=== PATIENT | female | born 1970 | race Hispanic/Latino ===

== ENCOUNTER 2019-07-09 10:18 | Outpatient (CLI) | payer BC ==
--- NOTE | 2019-07-09 12:35 | Mammography Report ---
DIGITAL DIAGNOSTIC MAMMOGRAM WITH CAD, 07/09/2019 INDICATION: Recent bilateral mammogram with nik done at [facility]. Bilateral stereotactic biops y was recommended. However, no magnification views of calcifications were done on that exam. She is n ow being imaged with magnification views to determine the necessity of biopsy. TECHNIQUE: Digital bilateral mammographic imaging was performed. Magnification views were obtained. This examination was interpreted with the benefit of Computer-aided Detection analysis. COMPARISON: 06/26/2019 bilateral mammogram from [facility] FINDINGS: Breast Density: The breasts are heterogeneously dense, which may obscure small masses. A group of pleomorphic calcifications in the right breast at 9:00 approximately 11-14 cm from the nip ple is the largest group and the most suspicious group of calcifications in the right breast. No defi nite mass associated with the calcifications. Additional pleomorphic calcifications in a ductal distr ibution extending anteriorly from this group for approximately 6.5 cm. A third group of right breast calcifications is located at 8:00 far posterior. This group is smaller with fewer calcifications and may not be accessible for stereotactic biopsy because they are so far posterior. A single group of left amorphous calcifications at 9:00 approximately 10 cm from the nipple. No other calcifications are identified in the left breast. No mass or architectural distortion of the left br east. IMPRESSION: 3 suspicious groups of calcifications in the right breast and on suspicious group of calc ifications in the left breast. Recommend bilateral stereotactic biopsy with biopsy of 2 sites in the right breast and one side in the left breast. I discussed the findings and the recommendation for bilateral stereotactic biopsy with the patient at the time of the exam. Follow up recommendation: Biopsy BI-RADS Category 4: Suspicious for Malignancy. A "normal" or negative report should not discourage follow up or biopsy of a clinically significant f inding. A written summary of these findings will be mailed to the patient. The patient will be entered into a mammography reporting system which will generate a reminder letter for the patient's next appointmen t at the appropriate interval. According to the [employer], yearly mammograms are recommended starting at age 40 and continuing as long as a woman is in good health. Breast MRI is recommended for women with an sandor roximately 20-25% or greater lifetime risk of breast cancer, including women with a strong family his tory of breast or ovarian cancer and women who have been treated for Hodgkin's disease. Signer Name: Xavier Jernigan MD Signed: 07/09/2019 12:30 PM Workstation Name: [id number]
== END 2019-07-09 10:19 | disposition home or self-care (01) ==
LOC: SPVWC 10:18
PROVIDERS: ATTEND Surgery
DX: R92.8 Other abnormal and inconclusive findings on diagnostic imaging of breast (principal); N64.89 Other specified disorders of breast
CPT/HCPCS: 77066

== ENCOUNTER 2019-07-16 08:50 | Outpatient (CLI) | payer BC ==
--- NOTE | 2019-07-16 15:51 | Mammography Report ---
STEREOTACTIC NEEDLE BIOPSY WITH CLIP PLACEMENT 2 SITES RIGHT BREAST INDICATION: RIGHT BREAST CALCIFICATIONS. COMPARISON: No relevant prior imaging study available. FINDINGS: The patient was placed prone on the stereotactic biopsy table. A timeout was called and the skin was cleansed with betadine. Attention was first given to the most suspicious group of calcifications located most superior. Using stereotactic guidance, sterile technique and 1% lidocaine for skin anesthesia and 2% lidocaine with epinephrine for deep anesthesia, 8-gauge Mammotome vacuum-assisted biopsy was performed from a CC fro m below approach. Samples were obtained around the clock face and financial foundations representative calcifications were identified on a specimen radiograph. A localizer clip was placed at the biopsy site and the probe was removed. Hemostasis was achieved with pressure to the site. Attention was then given to a more anterior group of calcifications closer to the nipple. Using stere otactic guidance, sterile technique and 1% lidocaine for skin anesthesia and 2% lidocaine with epinep hrine for deep anesthesia, 8-gauge Mammotome vacuum-assisted biopsy was performed from a CC from belo w approach. Samples were obtained around the clock face and financial foundations representative calcifications were identi fied on a specimen radiograph. A localizer clip was placed at the biopsy site and the probe was remov ed. Hemostasis was achieved with pressure to the site. A post procedure mammogram demonstrated removal of at least some of the calcifications at both sites and concordant location of the biopsy clips. The patient tolerated the procedure well and there were no apparent complications. She left the department in good condition with a cold pack applied to the biopsy sites and she was given instructions for wound care and follow-up. IMPRESSION: 1. Uncomplicated successful stereotactic biopsy with clip placement at 2 sites right breast.. Signer Name: Xavier Jernigan MD Signed: 07/16/2019 3:46 PM Workstation Name: [id number]
--- NOTE | 2019-07-16 15:51 | Mammography Report ---
STEREOTACTIC NEEDLE BIOPSY WITH CLIP PLACEMENT 2 SITES RIGHT BREAST INDICATION: RIGHT BREAST CALCIFICATIONS. COMPARISON: No relevant prior imaging study available. FINDINGS: The patient was placed prone on the stereotactic biopsy table. A timeout was called and the skin was cleansed with betadine. Attention was first given to the most suspicious group of calcifications located most superior. Using stereotactic guidance, sterile technique and 1% lidocaine for skin anesthesia and 2% lidocaine with epinephrine for deep anesthesia, 8-gauge Mammotome vacuum-assisted biopsy was performed from a CC fro m below approach. Samples were obtained around the clock face and paper sales representative calcifications were identified on a specimen radiograph. A localizer clip was placed at the biopsy site and the probe was removed. Hemostasis was achieved with pressure to the site. Attention was then given to a more anterior group of calcifications closer to the nipple. Using stere otactic guidance, sterile technique and 1% lidocaine for skin anesthesia and 2% lidocaine with epinep hrine for deep anesthesia, 8-gauge Mammotome vacuum-assisted biopsy was performed from a CC from belo w approach. Samples were obtained around the clock face and paper sales representative calcifications were identi fied on a specimen radiograph. A localizer clip was placed at the biopsy site and the probe was remov ed. Hemostasis was achieved with pressure to the site. A post procedure mammogram demonstrated removal of at least some of the calcifications at both sites and concordant location of the biopsy clips. The patient tolerated the procedure well and there were no apparent complications. She left the department in good condition with a cold pack applied to the biopsy sites and she was given instructions for wound care and follow-up. IMPRESSION: 1. Uncomplicated successful stereotactic biopsy with clip placement at 2 sites right breast.. Signer Name: Xavier Jernigan MD Signed: 07/16/2019 3:46 PM Workstation Name: [id number]
--- NOTE | 2019-07-16 16:05 | Mammography Report ---
DIGITAL DIAGNOSTIC MAMMOGRAM WITHOUT CAD, 07/16/2019 INDICATION: Immediately status post stereotactic biopsy for calcifications at 2 sites right breast. TECHNIQUE: Digital right mammographic imaging was performed. COMPARISON: 07/09/2019 FINDINGS: Breast Density: The breast is heterogeneously dense, which may obscure small masses. 2 biopsy clips are identified 5 cm apart in the outer breast. Many of the calcifications have been re moved and clip positions are concordant. IMPRESSION: Successful stereotactic biopsy at 2 sites with concordant clip placement. Follow up recommendation: No recall. Post biopsy imaging. A "normal" or negative report should not discourage follow up or biopsy of a clinically significant f inding. A written summary of these findings will be mailed to the patient. The patient will be entered into a mammography reporting system which will generate a reminder letter for the patient's next appointmen t at the appropriate interval. According to the [employer], yearly mammograms are recommended starting at age 40 and continuing as long as a woman is in good health. Breast MRI is recommended for women with an sandor roximately 20-25% or greater lifetime risk of breast cancer, including women with a strong family his tory of breast or ovarian cancer and women who have been treated for Hodgkin's disease. Signer Name: Xavier Jernigan MD Signed: 07/16/2019 4:00 PM Workstation Name: [id number]
== END 2019-07-16 08:51 | disposition home or self-care (01) ==
LOC: SPVWC 08:50
PROVIDERS: ATTEND Surgery
DX: R92.1 Mammographic calcification found on diagnostic imaging of breast (principal); D05.11 Intraductal carcinoma in situ of right breast
CPT/HCPCS: 19081; 19082; 77065; 88305; 88341; 88342; A4648

== ENCOUNTER 2019-07-19 13:32 | Outpatient (CLI) | payer BC ==
--- NOTE | 2019-07-19 16:12 | Mammography Report ---
DIGITAL DIAGNOSTIC MAMMOGRAM WITH CAD, 07/19/2019 INDICATION: POST STEREO BX TECHNIQUE: Digital left mammographic imaging was performed. This examination was interpreted with the benefit of Computer-aided Detection analysis. COMPARISON: 07/09/2019 FINDINGS: Breast Density: The breast is heterogeneously dense, which may obscure small masses. 2 biopsy clips are now identified. The lateral and slightly more anterior clip is concordant with the biopsy site. The more medial clip was initially placed but is displaced approximately 4 cm too media l. IMPRESSION: Successful stereotactic biopsy and concordant clip placement. Follow up recommendation: No recall. Post biopsy imaging. A "normal" or negative report should not discourage follow up or biopsy of a clinically significant f inding. A written summary of these findings will be mailed to the patient. The patient will be entered into a mammography reporting system which will generate a reminder letter for the patient's next appointmen t at the appropriate interval. According to the [employer], yearly mammograms are recommended starting at age 40 and continuing as long as a woman is in good health. Breast MRI is recommended for women with an sandor roximately 20-25% or greater lifetime risk of breast cancer, including women with a strong family his tory of breast or ovarian cancer and women who have been treated for Hodgkin's disease. Signer Name: Xavier Jernigan MD Signed: 07/19/2019 4:07 PM Workstation Name: [id number]
--- NOTE | 2019-07-19 16:15 | Mammography Report ---
STEREOTACTIC NEEDLE BIOPSY WITH CLIP PLACEMENT LEFT BREAST INDICATION: LEFT BREAST CALCIFICATIONS. COMPARISON: 07/09/2019 mammogram FINDINGS: The patient was placed prone on the stereotactic biopsy table. A timeout was called and the skin was cleansed with betadine. Using stereotactic guidance, sterile technique and 1% lidocaine for skin anesthesia and 2% lidocaine with epinephrine for deep anesthesia, 8-gauge Mammotome vacuum-assisted biopsy was performed from a l ateral approach. Samples were obtained around the clock face and motor vehicle representative calcifications were i dentified on a specimen radiograph. A localizer clip was placed at the biopsy site but was not identi fied on a stereo pair. A second clip was then deployed and placement was confirmed with an image. Hem ostasis was achieved with pressure to the site. A sterile dressing was applied. A post procedure mammogram demonstrated removal of at least some of the calcifications and concordant location of one of 2 biopsy clips. The more lateral clip is concordant with the biopsy site. The pat ient tolerated the procedure well and there were no apparent complications. She left the department i n good condition with a cold pack applied to the biopsy site and she was given instructions for wound care and follow-up. IMPRESSION: 1. Successful uncomplicated stereotactic biopsy of the left breast with concordant clip placement.. Signer Name: Xavier Jernigan MD Signed: 07/19/2019 4:11 PM Workstation Name: [id number]
== END 2019-07-19 13:33 | disposition home or self-care (01) ==
LOC: SPVWC 13:32
PROVIDERS: ATTEND Surgery
DX: R92.1 Mammographic calcification found on diagnostic imaging of breast (principal)
CPT/HCPCS: 19081; 77065; 88305; A4648

== ENCOUNTER 2019-08-22 11:08 | Outpatient (CLI) | payer BC ==
--- NOTE | 2019-08-22 16:02 | Magnetic Resonance Report ---
BILATERAL BREAST MR WITHOUT AND WITH GADOLINIUM INDICATION: Newly diagnosed right breast cancer at 2 sites. Stereotactic biopsy of calcifications on 07/16/2019 revealed DCIS at 2 sites in the right breast. She had a benign stereotactic biopsy of calc ifications of the left breast on 07/19/2019. COMPARISONS: 07/09/2019, 07/16/2019 07/19/2019 mammograms TECHNIQUE: Axial 1.0 mm T1 without, axial high-resolution 2.0 mm T2 and axial 1.0 mm dynamic vibrant high-resolution postcontrast T1 fat saturation sequences on a 1.5 Trina magnet. The examination was p erformed with an 8-channel dedicated [place]in[place] breast coil. Post-processing with CAD and subtraction was performed on an [employer] workstation. 19 cc of MultiHance was injected without incident for the con trast portion of the exam. Consent was obtained prior to the administration of the contrast. FINDINGS: RIGHT BREAST: Mild background parenchymal enhancement. Cancer #1 is an irregular non mass enhancement in the outer breast 13 cm from the nipple measuring 29.3 x 19.7 x 12.5 mm. It contains a biopsy clip and demonstrates heterogeneous enhancement with mixed kinetics, 83% peak enhancement and 94% type I persistent waveform. Cancer #2 irregular non mass enhancement in the outer breast 9.7 cm from the nip ple measuring 21.7 x 10.8 x 4.4 mm. It contains a biopsy clip and demonstrates heterogeneous enhancem ent with mixed kinetics, 170% peak enhancement and 4% type III washout. Lesion 3 is irregular non mas s enhancement in the upper outer breast 9.3 cm from the nipple measuring 24.2 x 6.5 x 4.2 mm. It demo nstrates heterogeneous enhancement with mixed kinetics, 91% peak enhancement and 5% type III washout. This lesion is located approximately 5 cm from cancer 1 and 3 cm from cancer 2. 2 additional subcent imeter suspicious lesions are identified in the lower outer quadrant approximately 9 cm from the nipp le. A single suspicious level 1 axillary lymph node measures 2.2 cm and has a cortical thickness of 6 mm. LEFT BREAST: Mild background parenchymal enhancement. No mass or suspicious enhancement. No suspiciou s lymph nodes. IMPRESSION: 1. Multicentric right breast cancer with 2 known cancers and at least 3 additional suspicious lesions . Lesion 3 is clearly above the nipple and the 2 smallest lesions are clearly below the nipple. There are no calcifications on the mammogram to correlate with any of these new lesions identified by MRI. 2. A suspicious right level 1 axillary lymph node with 6 mm thick cortex. 3. Negative left breast. FINAL ASSESSMENT: A normal MRI does not exclude the presence of some forms of breast malignancy as literature reports s uggest that some forms of ductal carcinoma in situ or lobular carcinoma, particularly, may not be det ected on MRI. The sensitivity and specificity of MRI for cancers under 5 mm may be reduced. MRI does not replace the recommendation for annual conventional mammographic evaluation and should be used as an adjunct to mammography and physical examination as necessary. Signer Name: Xavier Jernigan MD Signed: 08/22/2019 3:58 PM Workstation Name: [id number]
== END 2019-08-22 11:09 | disposition home or self-care (01) ==
LOC: SPVIMAG 11:08
PROVIDERS: ATTEND Surgery
DX: C50.111 Malignant neoplasm of central portion of right female breast (principal); N64.89 Other specified disorders of breast
CPT/HCPCS: A9577; C8908; 77049

== ENCOUNTER 2019-10-03 12:55 | Outpatient (CLI) | payer BC ==
--- NOTE | 2019-10-03 14:49 | Ultrasound Report ---
ULTRASOUND-GUIDED NEEDLE CORE BIOPSY RIGHT AXILLARY LYMPH NODE WITH CLIP PLACEMENT CLINICAL: Right breast cancer and an abnormal right axillary lymph node on MRI. FINDINGS: The procedure was explained to the patient and informed consent was obtained. Ultrasound demonstrated the previously identified lymph node measuring approximately 1.3 cm in short axis. I marked the breast with a felt tip marker and a timeout was called. The skin was prepped with Chloro -Prep and anesthetized with 1% lidocaine. Needle core biopsy was performed through small dermatotomy using ultrasound guidance, 2% lidocaine wi th epinephrine for deep anesthesia and a 18-gauge Achieve biopsy device. 3 cores were obtained and pl aced in formalin. A clip was deployed within the lymph node. The patient tolerated the procedure well and there were no apparent complications. Hemostasis was ach ieved with minimal effort and a sterile dressing was applied. IMPRESSION: Uncomplicated ultrasound guided needle core biopsy with clip placement right axillary lym ph node. Signer Name: Xavier Jernigan MD Signed: 10/03/2019 2:45 PM Workstation Name: [id number]
== END 2019-10-03 12:56 | disposition home or self-care (01) ==
LOC: SPVWC 12:55
PROVIDERS: ATTEND Surgery
DX: I89.8 Other specified noninfective disorders of lymphatic vessels and lymph nodes (principal); C50.911 Malignant neoplasm of unspecified site of right female breast
CPT/HCPCS: 38505; 76942; 88305; 88342

== ENCOUNTER 2019-11-16 10:32 | Observation (INO) | payer BC ==
[2019-11-14 10:20] LABS: Basophils % (Auto) 0.4 % (0.0-1.8); Eosinophils # (Auto) 0.1 K/mm3 (0.0-0.4); Eosinophils % (Auto) 1.1 % (0.0-4.3); Hematocrit 38.4 % (30.3-42.9); Hemoglobin 13.4 gm/dl (10.1-14.3); Lymphocytes # (Auto) 1.9 K/mm3 (1.2-5.4); Lymphocytes % (Auto) 22.7 % (13.4-35.0); Mean Corpuscular HGB Conc 35 % (30-34); Mean Corpuscular Volume 86 fl (79-97); Monocytes # (Auto) 0.7 K/mm3 (0.0-0.8); Monocytes % (Auto) 8.5 % (0.0-7.3); Platelet Count 259 K/mm3 (140-440); Red Blood Count 4.46 M/mm3 (3.65-5.03)
--- NOTE | 2019-11-14 10:36 | Anesthesia Consultation ---
Anesthesia Consult and Med Hx Date of service: 11/16/19 - Airway Anesthetic Teeth Evaluation: Good ROM Head & Neck: Adequate Mental/Hyoid Distance: Adequate Mallampati Class: Class I Intubation Access Assessment: Probably Good - Pulmonary Exam CTA: Yes - Cardiac Exam Cardiac Exam: RRR - Pre-Operative Health Status ASA Pre-Surgery Classification: ASA3 Proposed Anesthetic Plan: General Nerve Block: PEC - Pulmonary Hx Smoking: Yes (quit 20yrs ago) Hx Respiratory Symptoms: No - Cardiovascular System Hx Hypertension: No Hx Heart Attack/AMI: No Hx Percutaneous Transluminal Coronary Angioplasty (PTCA): No Hx Cardia Arrhythmia: No - Central Nervous System CVA: No - Gastrointestinal Hx Gastroesophageal Reflux Disease: No - Endocrine Hx Renal Disease: No Hx Liver Disease: No Hx Insulin Dependent Diabetes: No Hx Non-Insulin Dependent Diabetes: No Hx Thyroid Disease: No - Other Systems Hx Alcohol Use: Yes (Occas) Hx Cancer: Yes (breast ca) Hx Obesity: Yes (BMI 38) - Additional Comments Anesthesia Medical History Comments: Hx RA with prn prednisone 5mg (uses less than 1x/day). No prior GA. No FHx anesthetic complications.
[2019-11-14 10:42] LABS: Alanine Aminotransferase 22 units/L (7-56); Albumin 3.8 g/dL (3.9-5); BUN/Creatinine Ratio 20; Blood Urea Nitrogen 12 mg/dL (7-17); Calcium 9.4 mg/dL (8.4-10.2); Hemolysis Index 2
[~2019-11-16 10:32] MED LIST: CELECOXIB 200 MG CAP PO NR; GABAPENTIN 300 MG CAP PO NR; LACTATED RINGERS 1,000 ML IV SCH; MAGNESIUM OXIDE 400 MG TAB PO SCH; MIDAZOLAM 2 MG/2 ML INJ IV NR; SCOPOLAMINE TRANSDERMAL PATCH 72 HR TD NR; ceFAZolin/Water 2 GM/20 ML 2 GM/20 ML SYRINGE IV NR; fentaNYL 100 MCG/2 ML INJ IV PRN
[2019-11-16] MEDS ORDERED: dexAMETHasone 4 MG/ML VIAL ONE (11:36)
[2019-11-16] MEDS ORDERED: BUPIVACAINE-EPINEPHRINE/PF 0.5%-1:200,000 (30 ML) VIAL INFILTRATI ONE (11:36)
[2019-11-16] MEDS ORDERED: SODIUM CHLORIDE P/F VIAL 10 ML 30 ML ONE (11:36)
[2019-11-16] MEDS ORDERED: HYDROmorphone 1 MG/1 ML INJ IV PRN (11:55)
--- NOTE | 2019-11-16 11:55 | Anesthesia Day of Surgery ---
Anesthesia Day of Surgery - Day of Surgery Patient Examined: Yes Patient H&P Reviewed: Yes Patient is NPO: Yes
[2019-11-16] MEDS ORDERED: LIDOCAINE MPF (2%) 20 MG/1 ML VIAL 5 ML ONE (12:33)
[2019-11-16] MEDS ORDERED: HYDROmorphone 1 MG/1 ML INJ ONE (12:33)
[2019-11-16] MEDS ORDERED: ROCURONIUM 50 MG/5 ML INJ IV ONE (12:33)
[2019-11-16] MEDS ORDERED: propofoL 200 MG/20 ML VIAL IV ONE (12:34)
[2019-11-16] MEDS ORDERED: dexAMETHasone 20 MG/5 ML VIAL ONE (12:50)
[2019-11-16] MEDS ORDERED: PHENYLEPHRINE/NS 1,000 MCG/10 ML SYRINGE (OR USE) IV ONE (13:26)
[2019-11-16] MEDS ORDERED: ceFAZolin 1 GM VIAL ONE (13:53)
[2019-11-16] MEDS ORDERED: GENTAMICIN 40 MG/ML VIAL 2 ML ONE (13:53)
[2019-11-16] MEDS ORDERED: SODIUM CHLORIDE 0.9% 1000 ML 1,000 ML ONE ×2 (13:53→15:05)
[2019-11-16] MEDS ORDERED: BACITRACIN 50,000 UNIT VIAL ONE (13:53)
[2019-11-16] MEDS ORDERED: METHYLENE BLUE 50 MG/10 ML AMP ONE ×2 (15:05)
[2019-11-16] MEDS ORDERED: LACTATED RINGERS 2,000 ML ONE (16:14)
--- NOTE | 2019-11-16 17:29 | Operative Report ---
Operative Report Operative Report: Operative Report: Date of Service: November 16, 2019 Preoperative diagnosis: Multicentric right breast cancer of the upper outer quadrant Postoperative diagnosis: Same Procedure: Right total mastectomy with sentinel lymph node biopsy and left total mastectomy Surgeon: Ruma Mejia M.D. Mental Health Advanced Practice Nurse: Irma Serrano D.O. Anesthesia: Gen. Findings: Right breast clips (x2) present within right total mastectomy; x1 sentinel lymph node identified and negative for malignancy on frozen section of pathology with biopsy site changes Complications: None Drains: per Plastic Surgery Estimated blood loss: 150 cc Disposition: Plastic surgery proceeded with bilateral tissue manager food placement Indications for operative procedure: This is a 49-year-old lady with newly diagnosed stage 0 multicentric right breast cancer of the upper outer quadrant, ER positive. Patient wished to proceed with a bilateral mastectomy followed by immediate tissue manager food placement. She will be evaluated postoperative for adjuvant radiation therapy if indicated given Stage 0 breast cancer, chemother apy most likely not indicated given Stage 0 breast cancer unless invasive cancer found on final pathology and will then obtain Oncotype DX/Mammoprint. Patient with prior right axillary lymph node needle core biopsy performed and negative for malignancy. Left breast with benign findings. She wished to proceed with the above procedure. Procedure in detail: Bilateral pectoral block was placed by anesthesia. The patient was taken to the operating room and was placed supine. Gen. anesthesia was administered. The right nipple was injected with radioisotope. Bilateral chest and axillas were prepped and draped in the normal sterile operative fashion. Timeout was performed. Typical mastectomy incision markings were made. Attention was taken toward the left breast first. First began raising of the superior flap to the level of the clavicle superiorly and posteriorly to the pectoralis muscle. Followed by raising of the medial flap to the level of the sternum and posteriorly to the pectoralis muscle. Followed by raising of the lateral flap to the level of the latissimus dorsi muscle and taken down posteriorly. Followed by raising of the inferior flap to the level of the inframammary fold taken posterior to the pectoralis muscle. The mastectomy/breast was removed from the pectoralis muscle without incident. The specimen was appropriately marked and sent to pathology. Hemostasis was obtained using bovie cautery. The chest wall cavity was irrigated. Attention was taken towards the right breast. A gamma probe was inserted into the axilla to identify the sentinel lymph node location with uptake noted. A skin incision was made with a 10 blade knife and dissection taken down to the subcutaneous tissues. First began raising of the superior flap to the level of the clavicle superiorly and posteriorly to the pectoralis muscle. Followed by raising of the medial flap to the level of the sternum and posteriorly to the pectoralis muscle. Followed by raising of the lateral flap to the level of the latissimus dorsi muscle and taken down posteriorly. The gamma probe was inserted into the axilla, the axillary fascia was opened and 1 SLN was identified that were dissected free and sent to pathology. SLN sent to pathology with findings negative for malignancy on frozen section and biopsy site changes present. No additional counts noted in the axilla. Then proceeded with raising of the inferior flap to the level of the inframammary fold taken posterior to the pectoralis muscle. The mastectomy/breast was removed from the pectoralis muscle without incident. The specimen was appropriately marked and sent to radiology with findings of x2 breast clips present and sent to pathology. Additional tissue was then taken from the upper outer quadrant mastectomy skin flap-dense tissue noted with raising of the flap and sent to pathology. Hemostasis was obtained. The chest wall cavity was irrigated. She tolerated surgery very well and Dr. English then proceeded with bilateral tissue manager food placement.
[2019-11-16] MEDS ORDERED: WATER FOR IRRIG STERILE 1,500 ML BOTTLE IR ONE (17:30)
[2019-11-16] MEDS ORDERED: BACITRACIN 50,000 UNIT VIAL IR ONE (17:30)
[2019-11-16] MEDS ORDERED: GENTAMICIN 40 MG/ML VIAL 2 ML IV ONE (17:30)
[2019-11-16] MEDS ORDERED: SODIUM CHLORIDE 0.9% IRR 1,500 ML BOTTLE IR ONE (17:30)
[2019-11-16] MEDS ORDERED: ceFAZolin 1 GM VIAL IV ONE (17:30)
[2019-11-16] MEDS ORDERED: diphenhydrAMINE 25 MG CAP PO PRN (17:31)
[2019-11-16] MEDS ORDERED: oxyCODONE /ACETAMINOPHEN 5-325MG TAB PO PRN (17:31)
[2019-11-16] MEDS ORDERED: ACETAMINOPHEN 325 MG TAB PO PRN (17:31)
[2019-11-16] MEDS ORDERED: HYDROmorphone 2 MG TAB PO PRN (17:31)
[2019-11-16] MEDS ORDERED: METOCLOPRAMIDE 10 MG TAB PO PRN (17:31)
[2019-11-16] MEDS ORDERED: ONDANSETRON 4 MG/2 ML INJ IV PRN (17:31)
[2019-11-16] MEDS ORDERED: ONDANSETRON 4 MG/2 ML INJ ONE (17:31)
--- NOTE | 2019-11-16 17:31 | Short Stay Summary ---
Short Stay Documentation Date of service: 11/16/19 - History H&P: obtained from office - Allergies and Medications Current Medications: Allergies No Known Allergies Allergy (Unverified 11/13/19 12:13) Home Medications Medication Instructions Recorded Confirmed Last Taken Type Ergocalciferol(Vitamin D2)(Nf) 400 unit PO DAILY 11/13/19 11/16/19 11/15/19 12:00 History [Vitamin D (Nf)] Multivitamin [Daily Multiple 1 each PO DAILY 11/13/19 11/16/19 11/15/19 12:00 History Vitamin] RX: Ibuprofen [Motrin 800 MG tab] 800 mg PO Q8H PRN 11/13/19 11/16/19 11/15/19 12:00 History RX: predniSONE [Deltasone] 5 mg PO DAILY PRN 11/13/19 11/16/19 11/15/19 09:00 History Active Medications Celecoxib (Celebrex) 200 mg PO PREOP NR Stop: 11/16/19 23:00 Last Admin: 11/16/19 10:50 Dose: 200 mg Documented by: Fentanyl (Sublimaze) 100 mcg IV ONCE PRN PRN Reason: sedation for nerve block Stop: 11/16/19 23:00 Last Admin: 11/16/19 10:42 Dose: 100 mcg Documented by: Gabapentin (Gabapentin) 600 mg PO PREOP NR Stop: 11/16/19 23:00 Last Admin: 11/16/19 10:50 Dose: 600 mg Documented by: Hydromorphone HCl (Dilaudid) 0.5 mg IV Q10MIN PRN PRN Reason: Pain , Severe (7-10) Stop: 11/16/19 23:00 Cefazolin Sodium (Ancef/Sterile Water 2 Gm/20 Ml) 2 gm in 20 mls @ 80 mls/hr IV PREOP NR; Protocol Stop: 11/16/19 23:59 Lactated Ringer's (Lactated Ringers) 1,000 mls @ 100 mls/hr IV DIRECT SHAHANA Stop: 11/16/19 23:59 Last Admin: 11/16/19 10:50 Dose: 100 mls/hr Documented by: Magnesium Oxide (Mag-Ox) 400 mg PO PREOP SHAHANA Stop: 11/16/19 23:00 Last Admin: 11/16/19 10:50 Dose: 400 mg Documented by: Midazolam HCl (Versed) 2 mg IV PREOP NR Stop: 11/16/19 23:00 Last Admin: 11/16/19 11:42 Dose: 2 mg Documented by: Scopolamine (Transderm-Scop) 1 each TD PREOP NR Stop: 11/16/19 23:00 Last Admin: 11/16/19 10:50 Dose: 1 each Documented by: - Brief post op/procedure progress note Date of procedure: 11/16/19 Pre-op diagnosis: Multicentric right breast cancer UOQ Post-op diagnosis: same Procedure: Bilateral total mastectomy with right SLNB Anesthesia: GETA Findings: Right breast clips x2; neg SLN Surgeon: ALEKSANDR GAMING Offset Machine Operator: CAMILO WARREN Estimated blood loss: other (150 cc) Pathology: list Specimen disposition: to lab Condition: stable - Disposition Condition at discharge: Good Disposition: DC/TX-02 SHRT-TRM GEN HOSP IP Short Stay Discharge Plan Activity: other (no heavy lifting) Diet: regular Wound: keep clean and dry Follow up with: JANKI PAYNE MD [Primary Care Provider] - 7 Days ALEKSANDR GAMING MD [Staff Physician] - 7 Days
[2019-11-16] MEDS ORDERED: MORPHINE 2 MG/1 ML INJ IV PRN (17:32)
[2019-11-16] MEDS ORDERED: LACTATED RINGERS 1,000 ML IV SCH (18:00)
[2019-11-16] MEDS ORDERED: fentaNYL 100 MCG/2 ML INJ ONE (18:06)
[2019-11-16] MEDS ORDERED: LACTATED RINGERS 1,000 ML ONE (18:36)
--- NOTE | 2019-11-16 18:53 | Operative Report ---
PREOPERATIVE DIAGNOSIS: Right-sided breast cancer. POSTOPERATIVE DIAGNOSIS: Right-sided breast cancer. PROCEDURES: 1. Bilateral breast reconstruction using tissue expanders. 2. Bilateral breast reconstruction using biological mesh. 3. Application of DARIEN negative pressure wound VAC device to bilateral breasts for postoperative wound healing. SURGEON: Thony Todd M.D. SUPPLY OFFICER: None. ANESTHESIA: General. OPERATIVE INDICATIONS: This is a 49-year-old female with a history of right-sided breast cancer. She was referred to me by Dr. Mejia for breast reconstruction option. The patient was planning on undergoing bilateral mastectomies. After discussion about risks and benefits and different options, we decided on a tissue energy project manager to implant based reconstruction. OPERATIVE DETAILS: With informed consent obtained, Dr. Mejia brought the patient back to the operating room, began the surgery, did the timeout. I came in to the operating room after she had completed left-sided mastectomy and at that point, I scrubbed in to ensure that we did a timeout to verify the correct procedure being done and I went ahead, assessed the mastectomy defect on the left, measured the base diameter of the chest wall and then went ahead and began preparing the composite implants on the back table. I decided to do a prepectoral reconstruction. We used [place] [employer]ra Ultra High Profile 650 mL tissue expanders; on the left, serial number was [id number]; on the right, serial number [id number]. We did a full wrap using FlexHD Pliable 16 x 20 cm; on the right, we used a piece with serial number [id number] and on the left, serial number [id number]. We did a full 360-degree wrap, secured it posteriorly with 2-0 PDS sutures. We removed all the air from the energy project manager and placed 450 mL of saline into each energy project manager. We then came back to the field, achieved hemostasis, assessed both mastectomy defects at this point. Now, I went ahead and began our reconstruction. We placed the prepectoral implants over the pectoralis major muscle and secured in place circumferentially with 2-0 PDS sutures using the suture tabs and ADM itself. Once this was done, we placed a 19 and 15-[place] round Jorge drain on both sides and then began our closure. We used 2-0 Vicryl for the deeper layers, 3-0 Monocryl deep dermal, 3-0 Monocryl running subcuticular barbed suture. We applied a DARIEN negative pressure wound VAC device to both breasts. The patient was placed in a breast binder, awakened from general anesthesia, transferred to PACU in stable condition. ESTIMATED BLOOD LOSS: Less than 50 mL. COMPLICATIONS: None. SPECIMENS: None. FINDINGS: Bilateral mastectomy defects. JOB# [id number] Evelyn/INDRA
--- NOTE | 2019-11-16 18:56 | Post Anesthesia Evaluation ---
- Post Anesthesia Evaluation Patient Participated: Yes Airway Patent: Yes Stable Respiratory Function: Yes Nausea/Vomiting: No Temp > 96.8F: Yes Pain Manageable: Yes Adequeate Hydration: Yes Anesthesia Complications: No
[2019-11-16] MEDS: DOCUSATE SODIUM 100 MG CAP PO SCH (21:57)
--- NOTE | 2019-11-17 08:16 | Progress Note ---
Assessment and Plan This is a 49 year old lady with multicentric Stage 0 right breast cancer of upper outer quadrant, POD#1 bilateral total mastectomy with right SLNB followed by immediate bilateral tissue diabetes territory manager placement. No acute events overnight. 1. Pain in good control. 2. Bilateral chest incisions healing well, no hematoma, GUIDO drains to bulb suctio n with good output. 3. OOB to hallway. 4. GUIDO drain education. 5. D.C planning for today. Subjective Date of service: 11/17/19 Principal diagnosis: Multicentric right breast cancer UOQ Interval history: POD#1 bilateral total mastectomy with right SLNB followed by immediate bilateral tissue diabetes territory manager placement bilaterally Objective - Constitutional Vitals: Vital Signs - 12hr 11/17/19 11/17/19 00:00 05:17 Temperature 98.2 F 98.0 F Pulse Rate 72 60 Respiratory 20 20 Rate Blood Pressure 102/55 95/54 O2 Sat by Pulse 94 94 Oximetry General appearance: Present: no acute distress - EENT Eyes: PERRL, EOM intact ENT: hearing intact, clear oral mucosa, dentition normal Ears: bilateral: normal - Neck Neck: supple - Respiratory Respiratory effort: normal - Breasts Breasts: other (devang chest incisions with bandages intact and PICCO dressing to good suction; no hematoma; GUIDO drains to bulb suction with appr output) - Cardiovascular Rhythm: regular Extremities: no ischemia, pulses intact, pulses symmetrical, No edema, normal temperature, normal color, Full ROM - Gastrointestinal General gastrointestinal: Present: soft, non-tender, non-distended Rectal Exam: deferred - Genitourinary Female genitourinary: deferred - Integumentary Integumentary: clear, warm - Musculoskeletal Musculoskeletal: strength equal bilaterally - Neurologic Neurologic: CNII-XII intact, moves all extremities - Psychiatric Psychiatric: appropriate mood/affect, intact judgment & insight, memory intact, cooperative - Labs CBC & Chem 7: 11/14/19 09:45 11/14/19 09:00 Medications & Allergies - Medications Allergies/Adverse Reactions: Allergies No Known Allergies Allergy (Unverified 11/13/19 12:13) Home Medications: Home Medications Medication Instructions Recorded Confirmed Last Taken Type Ergocalciferol(Vitamin D2)(Nf) 400 unit PO DAILY 11/13/19 11/16/19 11/15/19 12:00 History [Vitamin D (Nf)] Ibuprofen [Motrin 800 MG tab] 800 mg PO Q8H PRN 11/13/19 11/16/19 11/15/19 12:00 History Multivitamin [Daily Multiple 1 each PO DAILY 11/13/19 11/16/19 11/15/19 12:00 History Vitamin] predniSONE [Deltasone] 5 mg PO DAILY PRN 11/13/19 11/16/19 11/15/19 09:00 History Active Medications: Generic Name Dose Route Start Last Admin Trade Name Long PRN Reason Stop Dose Admin Acetaminophen 650 mg 11/16/19 17:31 Tylenol PO Q6H PRN Pain MILD(1-3)/Fever >100.5/MORAN Diphenhydramine HCl 25 mg 11/16/19 17:31 Benadryl PO Q8H PRN Itching Docusate Sodium 100 mg 11/16/19 22:00 11/16/19 21:57 Colace PO 100 mg BID SHAHANA Administration Hydromorphone HCl 2 mg 11/16/19 17:31 Dilaudid PO Q6H PRN Pain , Severe (7-10) Lactated Ringer's 1,000 mls @ 125 mls/hr 11/16/19 18:00 11/16/19 21:57 Lactated Ringers IV 125 mls/hr DIRECT SHAHANA Administration Metoclopramide HCl 10 mg 11/16/19 17:31 Reglan PO Q6H PRN Nausea And Vomiting Morphine Sulfate 2 mg 11/16/19 17:32 Morphine IV Q4H PRN Pain, Moderate (4-6) Ondansetron HCl 4 mg 11/16/19 17:31 Zofran IV Q8H PRN N/V unrelieved by Reglan Oxycodone/Acetaminophen 1 tab 11/16/19 17:31 Percocet 5/325 PO Q6H PRN Pain, Moderate (4-6) Sodium Chloride 10 ml 11/16/19 17:31 Sodium Chloride Flush Syringe 10 Ml IV PRN PRN LINE FLUSH
[2019-11-17 09:11] VITALS: BP 104/54
[2019-11-17] MEDS: DOCUSATE SODIUM 100 MG CAP PO SCH (09:59)
--- NOTE | 2019-11-21 14:01 | Mammography Report ---
BREAST SPECIMEN RADIOGRAPH HISTORY: Right lumpectomy FINDINGS/IMPRESSION: The submitted radiograph or radiographs demonstrate(s) the presence of 2 biopsy clips in very dense b reast parenchyma. Along the more peripheral aspect of this specimen, there are 2 adjacent surgical cl ips. The specimen radiograph is somewhat underpenetrated but I do not see any convincing evidence for residual calcifications. Signer Name: Margarita Major MD Signed: 11/21/2019 1:57 PM Workstation Name: [id number]
--- NOTE | 2019-11-21 14:02 | Mammography Report ---
BREAST SPECIMEN RADIOGRAPH HISTORY: Left lumpectomy FINDINGS/IMPRESSION: The submitted radiograph or radiographs demonstrate(s) the presence of 2 biopsy clips within the cent ral aspect of the specimen. There is very dense breast parenchyma present within the specimen. The lo calization wire is not present. No definite calcifications are seen within the specimen although the radiograph is slightly underpenetrated. Signer Name: Margarita Major MD Signed: 11/21/2019 1:58 PM Workstation Name: [id number]
== END 2019-11-17 10:58 | disposition home or self-care (01) ==
LOC: OR 10:32 → OB 17:31
PROVIDERS: ADMIT Surgery; ATTEND Surgery
DX: Z03.818 Encounter for observation for suspected exposure to other biological agents ruled out (principal); C50.411 Malignant neoplasm of upper-outer quadrant of right female breast
CPT/HCPCS: 15777; 19303; 19357; 36415; 38525; 76098; 78800; 80053; 84703; 85025; 88307; 88333; A9541; G0378; J0690; J1100; J1170; J1580; J2250; J2370; J2405; J2704; J3010; J7030; J7120; Q9968; U0003; 64450; 88309; 88342; C1789; Q4128

== ENCOUNTER 2020-04-07 17:41 | Outpatient (CLI) | payer BC ==
[2020-04-11 15:14] LABS: Vitamin D, 25-OH, D2 <4 ng/mL
== END 2020-04-07 17:42 | disposition home or self-care (01) ==
LOC: LAB 17:41
PROVIDERS: ATTEND Internal Medicine
DX: C50.911 Malignant neoplasm of unspecified site of right female breast (principal)
CPT/HCPCS: 36415; 82306

== ENCOUNTER 2020-04-14 07:45 | Day surgery (SDC) | payer BC, OTHER ==
[2020-04-07 11:04] LABS: Basophils # (Auto) 0.1 K/mm3 (0.0-0.1); Basophils % (Auto) 1.3 % (0.0-1.8); Eosinophils # (Auto) 0.1 K/mm3 (0.0-0.4); Eosinophils % (Auto) 0.5 % (0.0-4.3); Hematocrit 38.6 % (30.3-42.9); Hemoglobin 13.2 gm/dl (10.1-14.3); Lymphocytes # (Auto) 1.4 K/mm3 (1.2-5.4); Lymphocytes % (Auto) 15.4 % (13.4-35.0); Mean Corpuscular HGB Conc 34 % (30-34); Mean Corpuscular Volume 86 fl (79-97); Monocytes # (Auto) 0.5 K/mm3 (0.0-0.8); Monocytes % (Auto) 5.5 % (0.0-7.3); Platelet Count 262 K/mm3 (140-440); Red Blood Count 4.48 M/mm3 (3.65-5.03); Red Cell Distribution Width 14.4 % (13.2-15.2)
[2020-04-07 11:25] LABS: Alanine Aminotransferase 23 units/L (7-56); Albumin 3.9 g/dL (3.9-5); BUN/Creatinine Ratio 20; Blood Urea Nitrogen 16 mg/dL (7-17); Calcium 9.3 mg/dL (8.4-10.2); Hemolysis Index 14
[~2020-04-14 07:45] MED LIST changes: +ACETAMINOPHEN 500 MG TAB PO SCH; -CELECOXIB 200 MG CAP PO NR; -MAGNESIUM OXIDE 400 MG TAB PO SCH; -ceFAZolin/Water 2 GM/20 ML 2 GM/20 ML SYRINGE IV NR; -fentaNYL 100 MCG/2 ML INJ IV PRN
--- NOTE | 2020-04-14 09:17 | Anesthesia Consultation ---
Anesthesia Consult and Med Hx Date of service: 04/14/20 - Airway Anesthetic Teeth Evaluation: Good ROM Head & Neck: Adequate Mental/Hyoid Distance: Adequate Mallampati Class: Class III Intubation Access Assessment: Probably Good (previous easy intubation w/ MAC 3) - Pulmonary Exam CTA: Yes - Cardiac Exam Cardiac Exam: RRR - Pre-Operative Health Status ASA Pre-Surgery Classification: ASA3 Proposed Anesthetic Plan: General - Pulmonary Hx Smoking: Yes (Former) Hx Respiratory Symptoms: No - Cardiovascular System Hx Hypertension: No Hx Heart Attack/AMI: No Hx Percutaneous Transluminal Coronary Angioplasty (PTCA): No - Central Nervous System CVA: No - Gastrointestinal Hx Gastroesophageal Reflux Disease: No - Endocrine Hx Renal Disease: No Hx Liver Disease: No Hx Insulin Dependent Diabetes: No Hx Non-Insulin Dependent Diabetes: No Hx Thyroid Disease: No - Other Systems Hx Alcohol Use: Yes (Occas) Hx Cancer: Yes (hx breast ca) Hx Obesity: Yes (BMI 38) - Additional Comments Anesthesia Medical History Comments: Hx RA and takes prednisone 5mg <x1/day. No hx anesthetic complications.
[2020-04-14] MEDS ORDERED: ONDANSETRON 4 MG/2 ML INJ IV PRN (09:18)
--- NOTE | 2020-04-14 09:18 | Anesthesia Day of Surgery ---
Anesthesia Day of Surgery - Day of Surgery Patient Examined: Yes Patient H&P Reviewed: Yes Patient is NPO: Yes
[2020-04-14] MEDS ORDERED: LIDOCAINE 1%/EPINEPHRINE 1:100,000 VIAL (20 ML) INFILTRATI NR (09:45)
[2020-04-14] MEDS ORDERED: GENTAMICIN 40 MG/ML VIAL 2 ML ONE (10:05)
[2020-04-14] MEDS ORDERED: SODIUM CHLORIDE 0.9% 1000 ML 2,000 ML ONE (10:05)
[2020-04-14] MEDS ORDERED: BACITRACIN 50,000 UNIT VIAL ONE (10:06)
[2020-04-14] MEDS ORDERED: ceFAZolin/Water 2 GM/20 ML 2 GM/20 ML SYRINGE IV ONE (10:06)
[2020-04-14] MEDS ORDERED: LIDOCAINE IJ SCH (11:00)
[2020-04-14] MEDS ORDERED: EPINEPHRINE IJ SCH (11:00)
[2020-04-14] MEDS ORDERED: LACTATED RINGERS IJ SCH (11:00)
[2020-04-14] MEDS ORDERED: propofoL 200 MG/20 ML VIAL IV ONE (11:00)
[2020-04-14] MEDS ORDERED: ceFAZolin/STERILE WATER 2 GM/20 ML SYRINGE IV NR (11:10)
[2020-04-14] MEDS ORDERED: KETAMINE/STERILE WATER 50 MG/ML SYRINGE ONE (11:25)
[2020-04-14] MEDS ORDERED: fentaNYL 100 MCG/2 ML INJ ONE (11:39)
[2020-04-14] MEDS ORDERED: dexAMETHasone 20 MG/5 ML VIAL ONE (12:53)
[2020-04-14] MEDS ORDERED: KETOROLAC 30 MG/1 ML INJ ONE (12:53)
[2020-04-14] MEDS ORDERED: ceFAZolin 1 GM VIAL ONE (12:53)
[2020-04-14] MEDS ORDERED: ONDANSETRON 4 MG/2 ML INJ ONE (12:53)
[2020-04-14] MEDS ORDERED: SODIUM CHLORIDE 0.9% 1000 ML 1,000 ML ONE (12:58)
[2020-04-14] MEDS ORDERED: LACTATED RINGERS 1000 ML IV SOLN IV ONE (13:00)
[2020-04-14] MEDS ORDERED: GENTAMICIN 40 MG/ML VIAL 2 ML IV ONE (13:00)
[2020-04-14] MEDS ORDERED: ceFAZolin 1 GM VIAL IV ONE (13:00)
[2020-04-14] MEDS ORDERED: SODIUM CHLORIDE 0.9% IRR 1,500 ML BOTTLE IR ONE (13:00)
[2020-04-14] MEDS ORDERED: BACITRACIN 50,000 UNIT VIAL IR ONE (13:00)
[2020-04-14] MEDS ORDERED: LIDOCAINE (1%) 10 MG/1 ML VIAL 20 ML MDV INFILTRATI ONE (13:00)
[2020-04-14] MEDS: HYDROmorphone 1 MG/1 ML INJ IV PRN ×2 (13:20→13:35)
--- NOTE | 2020-04-14 13:48 | Operative Report ---
PREOPERATIVE DIAGNOSIS: Personal history of breast cancer. POSTOPERATIVE DIAGNOSIS: Personal history of breast cancer. PROCEDURES: 1. Bilateral reconstruction with exchange of expanders to permanent implants. 2. Bilateral breast reconstruction using other technique, fat transfer to bilateral breasts. SURGEON: Dr. Thony Todd. IT TECHNICAL SUPPORT SPECIALIST: None. ANESTHESIA: General. OPERATIVE INDICATIONS: This is a 50-year-old female with a history of breast cancer who had undergone previous bilateral mastectomy and tissue motor brakeman reconstruction. She now presents for motor brakeman implant exchange and fat transfer for secondary reconstruction. Risks and benefits of surgery discussed with the patient, she agreed. OPERATIVE DETAILS: With informed consent obtained, the patient was brought to the operating room and placed supine on the operating room table. Preoperative antibiotics and general anesthesia were administered. The patient was prepped and draped in the usual sterile fashion. Timeout was called, verifying the name of the patient, operation being performed. We began by making small stab incisions in the axilla and then infiltrating about 100-150 mL of tumescent fluid into each axillary bra roll area. I waited 7-10 minutes for epinephrine to take effect. We then performed a liposuction and harvesting of the fat from the bilateral axillae using the LipieCrowd system. The fat was harvested and then placed into a small IV bags and allowed to gravity ____. Once I had done that, we drained out the excess fluid and then prepared the fat for later fat transfer. We then turned our attention to the implants, opened up her old incision. We dissected down to the capsule. We then incised and opened the capsule. We encountered the tissue motor brakeman, tissue motor brakeman was intact. We went ahead and ruptured it in order to drain it. This was done bilaterally. Once this was done, we assessed the pockets on both sides. Everything looked good, except for the pocket was tight medially and superiorly, therefore performed medial and superior capsulotomy on both sides. Once that was done, we put in a temporary sizer to determine what size to go with. We then went ahead and selected our final implants. We picked a [place] MemoryGel, smooth round ultra-high profile 800 mL implants, on the left side the serial number is [id number], on the right serial number [id number]. These were placed into the pocket after irrigating with triple antibiotic and Betadine placing new gloves and minimizing any contact with the skin. With the implant in place, we went ahead and prepared to close. Prior to closing, we went ahead and did our fat transfer. We used the LipoGrafter system and injected fat into the superior medial area where there was some contour defects. Some of the fat was able to stay in place. Some of that unfortunately was leaking back into the pocket and as I discussed with the patient would likely have to come back for secondary fat transfer once the pocket had completely healed again and we did not have to open it back up. We got about 60 mL onto the right and 60 mL onto the left. We then went ahead and began with closure. We used 2-0 Vicryls closed the capsule, 3-0 Monocryl deep dermals and a 3-0 Monocryl running subcuticular barbed suture. We then applied Dermabond, placed the patient into a support bra. She tolerated the procedure well, was awakened from general anesthesia, transferred to PACU in stable condition. ESTIMATED BLOOD LOSS: Less than 50 mL. COMPLICATIONS: None. SPECIMENS: None. FINDINGS: Intact bilateral tissue expanders. JOB# [id number] MARY/INDRA
[2020-04-14 13:58] VITALS: BP 120/75
== END 2020-04-14 07:46 | disposition home or self-care (01) ==
LOC: OR 07:45
PROVIDERS: ATTEND Plastic Surgery
DX: Z42.1 Encounter for breast reconstruction following mastectomy (principal); Z20.828 Contact with and (suspected) exposure to other viral communicable diseases; N65.0 Deformity of reconstructed breast; M19.90 Unspecified osteoarthritis, unspecified site; E66.9 Obesity, unspecified; Z80.8 Family history of malignant neoplasm of other organs or systems; Z72.89 Other problems related to lifestyle; Z79.899 Other long term (current) drug therapy; Z87.891 Personal history of nicotine dependence; Z85.3 Personal history of malignant neoplasm of breast
CPT/HCPCS: 11970; 15771; 19366; 36415; 80053; 81025; 85025; C1789; J0690; J1100; J1170; J1580; J1885; J2250; J2405; J2704; J3010; J3490; J7030; J7120; U0003

== ENCOUNTER 2020-06-15 13:01 | Emergency (ER) | payer BC ==
[2020-06-15] MEDS ORDERED: oxyCODONE /ACETAMINOPHEN 5-325MG TAB PO ONE (13:14)
--- NOTE | 2020-06-15 13:50 | XRay Report ---
RIGHT HUMERUS 3 VIEWS INDICATION / CLINICAL INFORMATION: rt arm pain/fall. COMPARISON: None available. FINDINGS: Slightly impacted and comminuted fracture involves the humeral head and neck. Signer Name: Issa Camarillo MD Signed: 06/15/2020 1:45 PM Workstation Name: [id number]
[2020-06-15 13:54] VITALS: BP 137/61
--- NOTE | 2020-06-15 14:35 | Emergency Department Report ---
Upper Extremity - HPI Chief Complaint: Extremity Injury, Upper Stated Complaint: RT ARM INJURY Time Seen by Provider: 06/15/20 13:23 Upper Extremity: Right Shoulder Occurred When: Today Mechanism: Fall Severity: severe Symptoms: Yes Pain with Movement, Yes Limited Range of Movement, No Deformity, No Numbness, No Weakness, No Swelling, No Bruising/Ecchymosis, No Laceration or Abrasion Other History: CC: "I fell and I heard a crunch.". HPI: THis is a 50 yo female with hx of breast cancer in remission s/p double mastectomy and reconstruction. She also has hx vitamin D deficiency and rheumatoid arthritis on methotrextrate. Mrs. Burris injured her right shoulder after falling onto outstretched hand. Patient has severe right shoulder pain /10. She heard a pop when the injury occurred. No radiation. Pain worse with movement. Pain is improved with arm stationary adducted internally rotated. PSHX also includes x 2 ED Review of Systems ROS: Stated complaint: RT ARM INJURY Other details as noted in HPI Constitutional: denies: fever, malaise Respiratory: denies: cough, shortness of breath Gastrointestinal: denies: abdominal pain, nausea, vomiting Musculoskeletal: arthralgia Neurological: denies: numbness, paresthesias ED Past Medical Hx - Past Medical History Previous Medical History?: Yes Hx Hypertension: No Hx Heart Attack/AMI: No Hx Liver Disease: No Hx Renal Disease: No Hx Arthritis: Yes Additional medical history: breast cancer - Surgical History Past Surgical History?: Yes Additional Surgical History: Double mastectomy, breast reconstruction, 2 C- Section 2006, 2008 - Social History Smoking Status: Former Smoker - Medications Home Medications: Home Medications Medication Instructions Recorded Confirmed Last Taken Type Ergocalciferol(Vitamin D2)(Nf) 400 unit PO DAILY 11/13/19 04/14/20 04/13/20 08:00 History [Vitamin D (Nf)] Ibuprofen [Motrin 800 MG tab] 800 mg PO Q8H PRN 11/13/19 04/14/20 02/21/20 08:00 History Multivitamin [Daily Multiple 1 each PO DAILY 11/13/19 04/14/20 04/13/20 08:00 History Vitamin] predniSONE 5 mg PO DAILY PRN 11/13/19 04/14/20 04/13/20 08:00 History oxyCODONE /ACETAMINOPHEN [Percocet 1 tab PO Q4HR PRN #30 tab 06/15/20 Unknown Rx 5/325] Upper Extremity Exam - Exam General: Vital signs noted. No distress. Alert and acting appropriately. Right upper externally: Tenderness at the right lateral shoulder no deformity intact skin intact sensation of the deltoid region, median ulnar radial nerves intact distally Head and Torso: No HEENT Abnormality, No Neck Tenderness Shoulder Exam: Yes Shoulder Tenderness, No Clavicle Tenderness, No Normal Range of Motion in Shoulder (Passive range of motion, patient has limited range of motion due to pain), No Shoulder Deformity, No AC Joint Tenderness Arm Exam: Yes Arm/Humerus Tenderness, No Arm Deformity Elbow: Yes Normal Range of Motion in Elbow, No Elbow Tenderness, No Elbow Deformity Forearm: No Forearm Tenderness, No Forearm Deformity, No Pain with Pronation, No Pain with Supination Wrist: Yes Normal ROM in Wrist, No Wrist Tenderness, No Wrist Deformity, No Snuffbox Tenderness, No Pain with Axial Thumb Compression Hand: Yes Normal ROM in Digit(s), No Hand Tenderness, No Hand Deformity, No Digit Tenderness, No Digit(s) Deformity, No Tendon Dysfunction CMS Exam: Yes Normal Distal Pulses (2+ radial pulse palpable), Yes Normal Capillary Refill, Yes Normal Distal Sensation, No Broken Skin ED Course Vital Signs 06/15/20 06/15/20 13:46 13:51 Temperature 97.8 F Pulse Rate 76 Respiratory 16 16 Rate Blood Pressure 137/61 [Left] O2 Sat by Pulse 99 Oximetry ED Medical Decision Making - Radiology Data Radiology results: report reviewed, image reviewed RIGHT HUMERUS 3 VIEWS INDICATION / CLINICAL INFORMATION: rt arm pain/fall. COMPARISON: None available. FINDINGS: Slightly impacted and comminuted fracture involves the humeral head and neck. - Medical Decision Making Comminuted fracture involving the humeral head and neck: Nondisplaced: Treated with right sling and pain control. Referred to orthopedic surgeon. Patient's extremity is neurovascular intact Critical care attestation.: If time is entered above; I have spent that time in minutes in the direct care of this critically ill patient, excluding procedure time. ED Disposition Clinical Impression: Fracture, humerus closed Disposition: DC- TO HOME OR SELFCARE Is pt being admited?: No Does the pt Need Aspirin: No Condition: Stable Instructions: Humerus Fracture Treated With Immobilization, [id number] Prescriptions: oxyCODONE /ACETAMINOPHEN [Percocet 5/325] 1 tab PO Q4HR PRN #30 tab PRN Reason: Pain , Severe (7-10) Referrals: CAMILO ZHU MD [Staff Physician] - [facility] Forms: Work/School Release Form(ED)
== END 2020-06-15 14:43 | disposition home or self-care (01) ==
LOC: ED 13:01
DX: S42.301A Unspecified fracture of shaft of humerus, right arm, initial encounter for closed fracture (principal); M19.90 Unspecified osteoarthritis, unspecified site; Z98.890 Other specified postprocedural states; Z87.891 Personal history of nicotine dependence; Z79.899 Other long term (current) drug therapy
CPT/HCPCS: 99283

== ENCOUNTER 2020-07-29 10:57 | Outpatient (CLI) | payer BC ==
--- NOTE | 2020-07-29 11:45 | XRay Report ---
RIGHT SHOULDER 3 VIEWS INDICATION: RIGHT SHOULDER PAIN. COMPARISON: Right humerus 06/15/2020 IMPRESSION: Subtle nondisplaced fracture involving the lateral right humeral head and neck appears u nchanged in position and alignment since the previous exam. Perhaps minimal calcified callus formatio n is identified indicating a healing fracture. No new fracture is appreciated. No significant DJD. Signer Name: Zia Kinney Jr, MD Signed: 07/29/2020 11:41 AM Workstation Name: [id number]
== END 2020-07-29 10:58 | disposition home or self-care (01) ==
LOC: XRAY 10:57
PROVIDERS: ATTEND Orthopaedic Surgery
DX: S42.251A Displaced fracture of greater tuberosity of right humerus, initial encounter for closed fracture (principal); X58.XXXA Exposure to other specified factors, initial encounter; Y93.89 Activity, other specified; Y92.89 Other specified places as the place of occurrence of the external cause; Y99.8 Other external cause status

== ENCOUNTER 2020-08-05 14:20 | Outpatient (CLI) | payer BC ==
[2020-08-05 15:08] LABS: Hematocrit 42.2 % (30.3-42.9); Hemoglobin 14.3 gm/dl (10.1-14.3); Mean Corpuscular HGB Conc 34 % (30-34); Mean Corpuscular Volume 92 fl (79-97); Platelet Count 316 K/mm3 (140-440); Red Blood Count 4.58 M/mm3 (3.65-5.03); Red Cell Distribution Width 14.2 % (13.2-15.2)
[2020-08-05 15:39] LABS: Alanine Aminotransferase 15 units/L (7-56); Albumin 3.8 g/dL (3.9-5); Blood Urea Nitrogen 9 mg/dL (7-17); Calcium 8.8 mg/dL (8.4-10.2); Hemolysis Index 6
[2020-08-05 15:43] LABS: BUN/Creatinine Ratio 15
[2020-08-05 16:20] LABS: Erythrocyte Sedimentation Rate 31 mm/Hr (0-20)
== END 2020-08-05 14:21 | disposition home or self-care (01) ==
LOC: LAB 14:20
PROVIDERS: ATTEND Internal Medicine Rheumatology
DX: M06.89 Other specified rheumatoid arthritis, multiple sites (principal)
CPT/HCPCS: 36415; 80053; 85027; 85652; 86140

== ENCOUNTER 2020-10-03 07:16 | Day surgery (SDC) | payer BC ==
[2020-09-30 12:14] LABS: Basophils % (Auto) 0.6 % (0.0-1.8); Eosinophils # (Auto) 0.2 K/mm3 (0.0-0.4); Eosinophils % (Auto) 2.7 % (0.0-4.3); Hematocrit 40.7 % (30.3-42.9); Hemoglobin 13.6 gm/dl (10.1-14.3); Lymphocytes # (Auto) 1.1 K/mm3 (1.2-5.4); Lymphocytes % (Auto) 14.5 % (13.4-35.0); Mean Corpuscular HGB Conc 34 % (30-34); Mean Corpuscular Volume 91 fl (79-97); Monocytes # (Auto) 0.6 K/mm3 (0.0-0.8); Monocytes % (Auto) 7.7 % (0.0-7.3); Platelet Count 262 K/mm3 (140-440); Red Blood Count 4.46 M/mm3 (3.65-5.03); Red Cell Distribution Width 14.1 % (13.2-15.2)
[2020-09-30 12:34] LABS: Blood Urea Nitrogen 10 mg/dL (7-17); Calcium 8.7 mg/dL (8.4-10.2); Hemolysis Index 5
[2020-09-30 13:19] LABS: BUN/Creatinine Ratio 14
[~2020-10-03 07:16] MED LIST changes: +CELECOXIB 200 MG CAP PO NR
[2020-10-03] MEDS ORDERED: BUPIVACAINE/PF (0.5%) 5 MG/1 ML 30 ML VIAL INFILTRATI ONE (07:51)
[2020-10-03] MEDS ORDERED: ceFAZolin 1 GM VIAL ONE ×2 (07:52→08:24)
[2020-10-03] MEDS ORDERED: BACITRACIN 50,000 UNIT VIAL ONE ×2 (07:53→08:24)
[2020-10-03] MEDS ORDERED: ceFAZolin/STERILE WATER 2 GM/20 ML SYRINGE IV NR (08:00)
[2020-10-03] MEDS ORDERED: SODIUM CHLORIDE P/F VIAL 10 ML 20 ML ONE (08:00)
[2020-10-03] MEDS ORDERED: GENTAMICIN 40 MG/ML VIAL 2 ML ONE ×2 (08:01→08:24)
[2020-10-03] MEDS ORDERED: PAPAVERINE 60 MG/2 ML INJ SDV ONE (08:06)
--- NOTE | 2020-10-03 08:09 | Anesthesia Consultation ---
Anesthesia Consult and Med Hx Date of service: 10/03/20 - Airway Anesthetic Teeth Evaluation: Good ROM Head & Neck: Adequate Mental/Hyoid Distance: Adequate Mallampati Class: Class II Intubation Access Assessment: Probably Good (previous easy intubation w/ MAC 3) - Pre-Operative Health Status ASA Pre-Surgery Classification: ASA3 Proposed Anesthetic Plan: General - Pulmonary Hx Smoking: Yes (quit 5 yrs ago) Hx Respiratory Symptoms: No - Cardiovascular System Hx Hypertension: No - Central Nervous System CVA: No - Endocrine Hx Renal Disease: No Hx Liver Disease: No Hx Insulin Dependent Diabetes: No Hx Non-Insulin Dependent Diabetes: No Hx Thyroid Disease: No - Other Systems Hx Obesity: Yes (BMI 39) - Additional Comments Anesthesia Medical History Comments: No hx anesthetic complications.
--- NOTE | 2020-10-03 08:09 | Anesthesia Day of Surgery ---
Anesthesia Day of Surgery - Day of Surgery Patient Examined: Yes Patient H&P Reviewed: Yes Patient is NPO: Yes
[2020-10-03] MEDS ORDERED: SODIUM CHLORIDE P/F VIAL 10 ML 40 ML ONE (08:26)
[2020-10-03] MEDS ORDERED: LIDOCAINE MPF (2%) 20 MG/1 ML VIAL 5 ML ONE (08:30)
[2020-10-03] MEDS ORDERED: SODIUM CHLORIDE 0.9% 1000 ML 1,000 ML ONE (08:49)
[2020-10-03] MEDS ORDERED: SODIUM CHLORIDE 0.9% 1000 ML 1,000 ML, EPINEPHrine/PF 1 mg/1 mL 1 MG, LIDOCAINE 1% 20 m... IJ NR (09:00)
[2020-10-03] MEDS ORDERED: propofoL 200 MG/20 ML VIAL IV ONE (09:07)
[2020-10-03] MEDS ORDERED: oxyCODONE /ACETAMINOPHEN 5-325MG TAB PO PRN (09:11)
[2020-10-03] MEDS ORDERED: ONDANSETRON 4 MG/2 ML INJ IV PRN (09:11)
[2020-10-03] MEDS ORDERED: KETAMINE/STERILE WATER 50 MG/ML SYRINGE ONE (09:17)
[2020-10-03] MEDS ORDERED: ONDANSETRON 4 MG/2 ML INJ ONE (09:18)
[2020-10-03] MEDS ORDERED: dexAMETHasone 20 MG/5 ML VIAL ONE (09:18)
[2020-10-03] MEDS ORDERED: KETOROLAC 30 MG/1 ML INJ ONE (09:18)
[2020-10-03] MEDS ORDERED: EPINEPHrine/PF 1 MG/1 ML INJ IV ONE (09:23)
[2020-10-03] MEDS ORDERED: LIDOCAINE (1%) 10 MG/1 ML VIAL 20 ML MDV INFILTRATI ONE (09:23)
[2020-10-03] MEDS ORDERED: fentaNYL 100 MCG/2 ML INJ ONE (09:35)
--- NOTE | 2020-10-03 11:05 | Operative Report ---
Operative Report Operative Report: PREOPERATIVE DIAGNOSES: History of breast cancer POSTOPERATIVE DIAGNOSES: Same PROCEDURES: 1. Bilateral breast reconstruction with fat transfer from abdomen to breasts (310cc total) 2. Bilateral breast reconstruction with revision reconstruction of breasts SURGEON: Thony Todd MD ANESTHESIA: General. INDICATIONS: This is a 50yF with history of breast cancer and previous implant based recon. Presents for fat transfer to help with severe rippling and thin skin flaps as well as revision of the breasts with excision of excess lateral breast and axillary tissue. Risks and benefits discussed. DESCRIPTION OF PROCEDURE: Patient brought to OR, supine, general anesthesia. Time out called to verify procedure and patient, IV antibiotics given. Abdomen infiltrated with 500cc of tumescent fluid. 7 minutes allowed to pass for vasoconstriction. Harvesting of fat done with lipografter kit using 3mm multihole cannula. Fat was allowed to decant in bags until later fat transfer. Attention turned toward the revision recon. Lateral breast and axillary tissue was marked preop in elliptical fashion. Starting on right side, skin was incised, cautery used to dissect down towards chest wall. Full thickness excision of the lateral tissue was performed. Hemostasis achieved. Tailor tacked with isis. Closed with 2-0 vicryl three point sutures to define lateral breast border, 3-0 PDS deep dermal, 2-0 monocryl barbed suture subcuticular. Same procedured performed on the left side as well. Small stab incision made in the breast on both sides. Fat was reinjected using the lipografter in the upper poles of the breast as well as through the entire upper half of the skin flaps in order to add thickness. Care was taken to stay in the subcutaneous space above the capsule and implant pocket itself. 160cc was injected into the right breast and 150cc into the left breast. 5-0 fast gut used to close all access sites. Dermabond placed over the incisions. Patient placed into support bra. Awakened from anesthesia and transferred to PACU in stable condition. ESTIMATED BLOOD LOSS: Less than 50 mL. COMPLICATIONS: None. SPECIMENS: none FINDINGS: Bilateral mastectomy deformity.
[2020-10-03] MEDS: HYDROmorphone 1 MG/1 ML INJ IV PRN ×3 (11:08→11:28)
[2020-10-03 16:20] VITALS: BP 140/84
== END 2020-10-03 13:30 | disposition home or self-care (01) ==
LOC: OR 07:16
PROVIDERS: ATTEND Plastic Surgery
DX: Z42.1 Encounter for breast reconstruction following mastectomy (principal); E66.9 Obesity, unspecified; M06.9 Rheumatoid arthritis, unspecified; Z85.3 Personal history of malignant neoplasm of breast; Z20.822 Contact with and (suspected) exposure to COVID-19; Z79.899 Other long term (current) drug therapy; Z87.891 Personal history of nicotine dependence; Z90.13 Acquired absence of bilateral breasts and nipples; Z98.891 History of uterine scar from previous surgery; Z72.89 Other problems related to lifestyle; Z98.890 Other specified postprocedural states; Z68.39 Body mass index [BMI] 39.0-39.9, adult; Z80.8 Family history of malignant neoplasm of other organs or systems; Z91.81 History of falling
CPT/HCPCS: 15771; 15772; 19380; 36415; 80048; 84703; 85025; J0171; J0690; J1100; J1170; J1580; J1885; J2250; J2405; J2704; J3010; J3490; J7030; J7120; U0003; J2440